=== PATIENT | female | born 1985 | race Caucasian/White ===

== ENCOUNTER → 2017-06-12 | Outpatient (CLI) | payer BC ==
[~2017-06-12] MED LIST: IBUP-1222 PO; OXYC-302 PO; PREN1TAB60 PO
== END | disposition home or self-care (01) ==
LOC: CFH 15:46
PROVIDERS: ATTEND Family Medicine
DX: R07.89 Other chest pain (principal); R10.11 Right upper quadrant pain
CPT/HCPCS: 71020

== ENCOUNTER → 2018-09-30 | Outpatient (CLI) | payer BC | END | disposition home or self-care (01) | LOC: CFH 12:18 | PROVIDERS: ATTEND Family Medicine | DX: N64.4 Mastodynia (principal) | CPT/HCPCS: 77066 ==